=== PATIENT | female | born 1995 | race Caucasian/White ===

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

== ENCOUNTER 2018-05-21 16:01 | Emergency (ER) | payer OTHER ==
--- NOTE | 2018-05-21 16:15 | PDOC ---
Rapid Medical Evaluation Chief Complaint: Vaginal Sxs Time Seen by Provider: 05/21/18 16:12 Medical Evaluation: Allergies Allergy/AdvReac Type Severity Reaction Status Date / Time No Known Allergies Allergy Verified 12/22/16 12:56 05/21/18 16:14 I have performed a brief in-person evaluation of this patient. The patient presents with a chief complaint of: abd cramping / burning with void / vag draiange Pertinent physical exam findings: abd soft/ no guarding I have ordered the following: UCG/UA/ Ucx/ GC/Chlamy The patient will proceed to the ED for further evaluation. Discharge Disposition - Referrals Referrals: Yoel Garza MD [Primary Care Provider] - - Patient Instructions - Post Discharge Activity
[2018-05-21 16:19] VITALS: BP 126/57; PULSE 61; TEMP 98.8; BMI 25.2
--- NOTE | 2018-05-21 16:35 | PDOC ---
History of Present Illness - General Chief Complaint: Vaginal Sxs Stated Complaint: VAGINAL PROBLEM/STD TEST Time Seen by Provider: 05/21/18 16:12 History Source: Patient Exam Limitations: No Limitations - History of Present Illness Travel History: No Initial Comments: 05/21/18 16:34 c/o 2 months on and off vaginal discharge and burning with urination and intercourse. LMP 2 weeks ago using control pill. Past History - Past Medical History Allergies/Adverse Reactions: Allergies Allergy/AdvReac Type Severity Reaction Status Date / Time No Known Allergies Allergy Verified 05/21/18 16:15 Home Medications: Ambulatory Orders No Home Medications 0 dose .ROUTE UTDICT 02/23/13 COPD: No - Reproductive History (#): 1 Para: 0 Therapeutic (s) & number: No Spontaneous : 0 - Immunization History Immunization Up to Date: No - Suicide/Smoking/Psychosocial Hx Smoking Status: No Smoking History: Never smoked Have you smoked in the past 12 months: No Number of Cigarettes Smoked Daily: 0 Information on smoking cessation initiated: No Hx Alcohol Use: No Drug/Substance Use Hx: No Substance Use Type: None *Physical Exam - Vital Signs Last Vital Signs Temp Pulse Resp BP Pulse Ox 98.8 F 61 18 126/57 L 100 05/21/18 16:13 05/21/18 16:13 05/21/18 16:13 05/21/18 16:13 05/21/18 16:13 - Physical Exam General Appearance: Yes: Nourished, Appropriately Dressed HEENT: positive: EOMI, OMARI, Normal ENT Inspection, TMs Normal, Pharynx Normal Respiratory/Chest: positive: Lungs Clear, Normal Breath Sounds Cardiovascular: positive: Regular Rhythm, Regular Rate Female Pelvic Exam: positive: discharge (thick yellow/white ). negative: normal adnexa, lesions, adnexal tenderness Gastrointestinal/Abdominal: positive: Normal Bowel Sounds. 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 NML intact, Fully Oriented, Alert, Normal Mood/ Affect, Normal Response, Motor Strength 5/5 Medical Decision Making - Medical Decision Making 05/21/18 16:55 cc: vaginal discharge for 2 months comes and goes painful intercourse will treat for STD exposure pt believes she may have been exposed 2 months ago will draw HIV, RPR *DC/Admit/Observation/Transfer Diagnosis at time of Disposition: Vaginal discharge - Discharge Dispostion Disposition: HOME Condition at time of disposition: Good - Referrals Referrals: Yoel Garza MD [Primary Care Provider] - - Patient Instructions Printed Discharge Instructions: DI for Vaginal Discharge Additional Instructions: 05/21/18 1. As discussed, a screening test for the HIV virus was performed today. Your HIV test is Negative (normal). 2. As discussed, if you engaged in high risk-behavior in the three (3) months prior to this test, you could still potentially be at risk and you will need to be re-tested. 3. As discussed, avoid any high risk behavior (such as unprotected sex or needle-sharing) in the future to minimize the chances of riky HIV. 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
[2018-05-21 16:37] LABS: URINE APPEARANCE CLEAR; URINE BILIRUBIN NEGATIVE (<2.0 mg/dL); URINE COLOR YELLOW; URINE GLUCOSE (UA) NEGATIVE (NEGATIVE); URINE KETONE NEGATIVE (NEGATIVE); URINE LEUK ESTERASE NEGATIVE (NEGATIVE); URINE NITRITE NEGATIVE (NEGATIVE); URINE PROTEIN NEGATIVE (NEGATIVE); URINE UROBILINOGEN NEGATIVE mg/dL (0.2-1.0)
[2018-05-21] MEDS ORDERED: AZITHROMYCIN 500 MG TABLET PO ONE (16:38)
[2018-05-21 16:39] LABS: HCG,QUALITATIVE URINE Negative
[2018-05-21] MEDS ORDERED: AZITHROMYCIN 250 MG TABLET ONE (16:50)
== END 2018-05-21 18:26 | disposition home or self-care (01) ==
LOC: JERFT 16:01
DX: Z20.2 Contact with and (suspected) exposure to infections with a predominantly sexual mode of transmission (principal)
CPT/HCPCS: 36415; 81003; 84703; 86593; 87070; 87086; 87205; 87389; 87491; 87591; 99281-25

== ENCOUNTER 2018-07-02 10:16 | Emergency (ER) | payer OTHER ==
[2018-07-02 10:28] VITALS: BP 117/62; PULSE 60; TEMP 98.7; BMI 25.2
--- NOTE | 2018-07-02 11:23 | PDOC ---
History of Present Illness - General Chief Complaint: Nausea/Vomiting Stated Complaint: NAUSEA/VOMITING Time Seen by Provider: 07/02/18 11:14 History Source: Patient Exam Limitations: No Limitations - History of Present Illness Initial Comments: Pt is a 23-year-old female who states over the past 2 days sh has had 3-4 episodes of nausea and vomiting. Patient's LMP was earlier this month. She denies abdominal pain, denies fever, denies diarrhea. Denies sick contacts or recent international travel. Patient denies dysuria. Pain is 0-10. Denies any aggravating or relieving factors. 07/02/18 11:19 Past History - Travel Traveled outside of the country in the last 30 days: No Close contact w/someone who was outside of country & ill: No - Past Medical History Allergies/Adverse Reactions: Allergies Allergy/AdvReac Type Severity Reaction Status Date / Time No Known Allergies Allergy Verified 05/21/18 16:15 Home Medications: Ambulatory Orders No Home Medications 0 dose .ROUTE UTDICT 02/23/13 COPD: No - Reproductive History (#): 1 Para: 0 Therapeutic (s) & number: No Spontaneous : 0 - Immunization History Immunization Up to Date: No - Suicide/Smoking/Psychosocial Hx Smoking Status: No Smoking History: Current some day smoker Have you smoked in the past 12 months: No Number of Cigarettes Smoked Daily: 0 Information on smoking cessation initiated: No Hx Alcohol Use: No Drug/Substance Use Hx: No Substance Use Type: None Review of Systems - Review of Systems Able to Perform ROS?: Yes Constitutional: No: Chills, Fever ABD/GI: No: Abdominal Distended, Constipated, Diarrhea, Indigestion All Other Systems: Reviewed and Negative *Physical Exam - Vital Signs Last Vital Signs Temp Pulse Resp BP Pulse Ox 98.7 F 60 16 117/62 98 07/02/18 10:24 07/02/18 10:24 07/02/18 10:24 07/02/18 10:24 07/02/18 10:24 - Physical Exam Comments: Constitutional: VS stated, pt appears in no apparent distress; sitting in chair. Skin: Warm and dry. Intact, no lesions or excoriations. Head: Normocephalic; atraumatic Eyes: conjunctiva pink without injection or discharge. Throat: Oropharynx with pink and moist mucosa. Lungs: Bilateral breath sounds clear upon auscultation. No adventitious breath sounds. Heart: Regular rate and rhythm, S1/S2 auscultated. No murmurs, rubs, or gallops. No visible pulsations, heaves, or lifts on precordium. Abdomen: Soft and non-tender. Bowel sounds present in all 4 quadrants, no hepatosplenomegaly, No bruits auscultated. No guarding or rebound. No masses or visible pulsations present. No suprapubic tenderness. No CVAT. No bruits. Musculoskeletal: Moves all extremities without difficulty. Neurologic: Awake, alert. Conversation fluent. Psych: Approrpiate affect 07/02/18 11:22 Moderate Sedation - Procedure Monitoring Vital Signs: Procedure Monitoring Vital Signs Temperature 98.7 F 07/02/18 10:24 Pulse Rate 60 07/02/18 10:24 Respiratory Rate 16 07/02/18 10:24 Blood Pressure 117/62 07/02/18 10:24 O2 Sat by Pulse Oximetry (%) 98 07/02/18 10:24 Medical Decision Making - Medical Decision Making Pt's urine was negative. She decided to forego Zofran for nausea. Patient's physical exam and vital signs are within normal limits. I do not feel the patient needs further evaluation. I feel this more viral in nature. 07/02/18 11:22 07/02/18 12:04 *DC/Admit/Observation/Transfer Diagnosis at time of Disposition: Nausea & vomiting Qualifiers: Vomiting type: unspecified Vomiting Intractability: non-intractable Qualified Code(s): R11.2 - Nausea with vomiting, unspecified - Discharge Dispostion Disposition: HOME Condition at time of disposition: Stable - Referrals Referrals: Yoel Garza MD [Primary Care Provider] - - Patient Instructions Printed Discharge Instructions: DI for Nausea -- Adult Additional Instructions: Force fluids. Follow up with your PCP. Return for fever greater than 100 or worsening symptoms. - Post Discharge Activity Forms/Work/School Notes: Back to Work
== END 2018-07-02 12:14 | disposition home or self-care (01) ==
LOC: JERFT 10:16
DX: R11.2 Nausea with vomiting, unspecified (principal)
CPT/HCPCS: 84703; 99281-25

== ENCOUNTER 2018-08-29 20:00 | Emergency (ER) | payer OTHER ==
[2018-08-29 20:08] VITALS: BP 109/64; PULSE 90; TEMP 98.2; BMI 25.4
[2018-08-29] MEDS ORDERED: DEXAMETHASONE SOD PHOSPHATE 4 MG/1 ML VIAL IM ONE (21:18)
[2018-08-29] MEDS ORDERED: NAPROXEN 500 MG TABLET (FP) PO ONE (21:19)
--- NOTE | 2018-08-29 21:23 | PDOC ---
History of Present Illness - General Chief Complaint: Sore Throat Stated Complaint: SORE THROAT/CHEST PAIN Time Seen by Provider: 08/29/18 21:12 - History of Present Illness Initial Comments: 08/29/18 21:22 Chief complaint sore throat History of present illness: 23 years old no significant past medical history except for recurrent strep presents to the emergency department 2 day history of sore throat. Subjective fevers at home no runny nose no cough pain with swallowing but no difficulty breathing no severe neck pain or stiffness no severe headache no rash Symptoms are moderate persistent concent no exacerbating or alleviating factors. Past History - Past Medical History Allergies/Adverse Reactions: Allergies Allergy/AdvReac Type Severity Reaction Status Date / Time No Known Allergies Allergy Verified 08/29/18 20:08 Home Medications: Ambulatory Orders No Home Medications 0 dose .ROUTE UTDICT 02/23/13 Amox-Tr/K Cl [Augmentin - 875Mg Tablet] 1 tab PO BID #14 tablet 08/29/18 COPD: No - Reproductive History (#): 1 Para: 0 Therapeutic (s) & number: No Spontaneous : 0 - Immunization History Immunization Up to Date: No - Suicide/Smoking/Psychosocial Hx Smoking Status: No Smoking History: Never smoked Have you smoked in the past 12 months: No Number of Cigarettes Smoked Daily: 0 Information on smoking cessation initiated: No Hx Alcohol Use: No Drug/Substance Use Hx: No Substance Use Type: None Review of Systems - Review of Systems Comments:: 08/29/18 21:22 ROS: A complete review of 10 out of 10 review of systems is taken and is negative apart from what is previously mentioned below and in the HPI. *Physical Exam - Vital Signs Last Vital Signs Temp Pulse Resp BP Pulse Ox 98.2 F 90 16 109/64 100 08/29/18 20:07 08/29/18 20:07 08/29/18 20:07 08/29/18 20:07 08/29/18 20:07 - Physical Exam Comments: 08/29/18 21:23 Vitals: Triage Vital signs reviewed General Appearance: no acute distress, well nourished well developed, Head: Atraumatic, Nose: Nares patent bilaterally;no nasal congestion Throat: Bilateral enlarged tonsils with erythema Neck: Supple;No Nucal rigidity Chest Wall: Nontender Cardiac: Regular rate and rhythym, no murmurs, no rubs, no gallops, Lungs: Clear to auscultation bilateral, good air movement bilaterally, Extremities: Full range of motion to all extremities, no cyanosis, clubbing, or edema Skin: Warm and dry, no rashes or lesions, no rash, no petechiae Psych: normal mood, normal affect Moderate Sedation - Procedure Monitoring Vital Signs: Procedure Monitoring Vital Signs Temperature 98.2 F 08/29/18 20:07 Pulse Rate 90 08/29/18 20:07 Respiratory Rate 16 08/29/18 20:07 Blood Pressure 109/64 08/29/18 20:07 O2 Sat by Pulse Oximetry (%) 100 08/29/18 20:07 Medical Decision Making - Medical Decision Making 08/29/18 21:24 History examination consistent with strep throat given history of recurrent strep we'll treat with Augmentin on further history she was recently diagnosed and treated back in early July she believes was amoxicillin Well-appearing no headache no neck stiffness able to tolerate fluids we'll treat with IM Decadron by mouth naproxen and Augmentin as an outpatient she will return to ED for any severe worsening symptoms or for any concerns. Find his, need for follow-up and strict return instructions discussed with patient. *DC/Admit/Observation/Transfer Diagnosis at time of Disposition: Strep pharyngitis - Discharge Dispostion Disposition: HOME Decision to Admit order: No - Prescriptions Prescriptions: Amox-Tr/K Cl [Augmentin - 875Mg Tablet] 1 tab PO BID #14 tablet - Referrals Referrals: Timo Jorge MD [Staff Physician] - - Patient Instructions Printed Discharge Instructions: Strep Throat Additional Instructions: Take Augmentin as prescribed. Follow-up with Dr. Jorge ENT next week. Return to emergency Department for severe worsening symptoms or for any concerns. Drink plenty of fluids. Take naproxen 2 tabs twice a day for the next 3 days and Tylenol as needed as directed on package. - Post Discharge Activity
[2018-08-29] MEDS ORDERED: DEXAMETHASONE SOD PHOSPHATE 4 MG/1 ML VIAL ONE (21:31)
[2018-08-29] MEDS ORDERED: NAPROXEN 500 MG TABLET (FP) ONE (21:31)
== END 2018-08-29 21:54 | disposition home or self-care (01) ==
LOC: JERFT 20:00
DX: J02.0 Streptococcal pharyngitis (principal); B95.5 Unspecified streptococcus as the cause of diseases classified elsewhere
CPT/HCPCS: 87070; 87077; 99281-25

== ENCOUNTER 2018-08-31 16:15 | Emergency (ER) | payer OTHER ==
[2018-08-31 16:20] VITALS: BP 97/55; PULSE 62; TEMP 98.4; BMI 25.4
--- NOTE | 2018-08-31 16:20 | PDOC ---
Rapid Medical Evaluation Medical Evaluation: Allergies Allergy/AdvReac Type Severity Reaction Status Date / Time No Known Allergies Allergy Verified 08/29/18 20:08 08/31/18 16:18 I performed a brief in-person evaluation of this patient. Chief complaint: Chest pain, here 08/29 for strep, on Augmentin Pertinent physical exam findings: Epigastric tenderness. RRR, S1/S2. Lungs CTAB. I have ordered the following: EKG Patient will proceed to the ED for further evaluation. Discharge Disposition - Diagnosis Chest pain - Referrals - Patient Instructions - Post Discharge Activity
[2018-08-31] MEDS ORDERED: MAG HYDROX/AL HYDROX/SIMETH 30 ML UNIT-DOSE CUP PO ONE (17:02)
[2018-08-31] MEDS ORDERED: MAG HYDROX/AL HYDROX/SIMETH 30 ML UNIT-DOSE CUP ONE (17:06)
--- NOTE | 2018-08-31 17:06 | PDOC ---
History of Present Illness - General Chief Complaint: Chest Pain Stated Complaint: CHEST PAIN Time Seen by Provider: 08/31/18 16:43 - History of Present Illness Initial Comments: 08/31/18 17:06 23-year-old female into a 2 day course of amoxicillin for strep throat complains of chest pain. She describes her pain as a burning pain after eating. No radiation of symptoms. She points to the epigastric area of the area of her discomfort Past History - Past Medical History Allergies/Adverse Reactions: Allergies Allergy/AdvReac Type Severity Reaction Status Date / Time No Known Allergies Allergy Verified 08/31/18 16:18 Home Medications: Ambulatory Orders Amoxicillin/Potassium Clav [Augmentin 875-125 Tablet] 1 each PO BID 08/31/18 Famotidine [Pepcid] 20 mg PO BID #60 tablet 08/31/18 COPD: No - Reproductive History (#): 1 Para: 0 Therapeutic (s) & number: No Spontaneous : 0 - Immunization History Immunization Up to Date: No - Suicide/Smoking/Psychosocial Hx Smoking Status: No Smoking History: Never smoked Have you smoked in the past 12 months: No Number of Cigarettes Smoked Daily: 0 Hx Alcohol Use: No Drug/Substance Use Hx: No Substance Use Type: None Review of Systems - Review of Systems ABD/GI: Yes: See HPI *Physical Exam - Vital Signs Last Vital Signs Temp Pulse Resp BP Pulse Ox 98.4 F 62 18 97/55 L 99 08/31/18 16:18 08/31/18 16:18 08/31/18 16:18 08/31/18 16:18 08/31/18 16:18 - Physical Exam Comments: 08/31/18 17:06 HEAD: NC/AT EYES: Conjuntiva clear Ears: Canals and TM's normal NOSE: No d/c THROAT: Moist mucous membrances, oral pharanx clear, uvula midline NECK: Supple without adenopathy CARDIAC: S1 S2 LUNGS: CTA Full and Equal breath sounds ABDOMEN: Soft NT ND MS: Full ROM in all joints without edema NEUROLOGIC: No gross sensory or motor deficits, NVID SKIN: Normal color and temperature no lesions or rashes Moderate Sedation - Procedure Monitoring Vital Signs: Procedure Monitoring Vital Signs Temperature 98.4 F 08/31/18 16:18 Pulse Rate 62 08/31/18 16:18 Respiratory Rate 18 08/31/18 16:18 Blood Pressure 97/55 L 08/31/18 16:18 O2 Sat by Pulse Oximetry (%) 99 08/31/18 16:18 Medical Decision Making - Medical Decision Making 08/31/18 17:43 Improved after [place] 08/31/18 17:46 ekg normal *DC/Admit/Observation/Transfer Diagnosis at time of Disposition: Chest pain, GERD (gastroesophageal reflux disease) - Discharge Dispostion Disposition: HOME Condition at time of disposition: Improved Decision to Admit order: No - Referrals Referrals: Yoel Garza MD [Primary Care Provider] - Casa Mckeon DO [Staff Physician] - - Patient Instructions Printed Discharge Instructions: Heartburn -- Overview, DI for Gastroesophageal Reflux Disease (GERD), GERD Diet Additional Instructions: Please take the Pepcid as directed. Discontinue all anti-inflammatory such as Advil Motrin Naprosyn Aleve ibuprofen. You may only take Tylenol at this point fear pain. Follow-up with gastroenterology in one to 2 days for further evaluation and treatment options and return to the emergency room should symptoms worsen or go unresolved. - Post Discharge Activity
--- NOTE | 2018-09-01 12:07 | EKG ---
Test Reason : Blood Pressure : / mmHG Vent. Rate : 054 BPM Atrial Rate : 054 BPM P-R Int : 124 ms QRS Dur : 074 ms QT Int : 404 ms P-R-T Axes : 025 064 034 degrees QTc Int : 383 ms SINUS BRADYCARDIA WITH SINUS ARRHYTHMIA OTHERWISE NORMAL ECG WHEN COMPARED WITH ECG OF 22-DEC-2016 14:26, NO SIGNIFICANT CHANGE WAS FOUND Confirmed by MD SPENSER, XIAO ([id number]) on 09/01/2018 12:07:44 PM Referred By: Confirmed By:IXAO DUEÑAS MD
== END 2018-08-31 17:49 | disposition home or self-care (01) ==
LOC: JERFT 16:15
DX: K21.9 Gastro-esophageal reflux disease without esophagitis (principal); R07.9 Chest pain, unspecified
CPT/HCPCS: 84703; 93005; 93010; 99281-25

== ENCOUNTER 2018-09-09 17:28 | Emergency (ER) | payer OTHER ==
[2018-09-09 17:43] VITALS: BP 103/60; PULSE 82; TEMP 99; BMI 25.4
--- NOTE | 2018-09-09 17:46 | PDOC ---
Rapid Medical Evaluation Chief Complaint: Sore Throat Time Seen by Provider: 09/09/18 17:43 Medical Evaluation: Allergies Allergy/AdvReac Type Severity Reaction Status Date / Time No Known Allergies Allergy Verified 08/31/18 16:18 Vital Signs Temp Pulse Resp BP Pulse Ox 99.0 F 82 18 103/60 99 09/09/18 17:41 09/09/18 17:41 09/09/18 17:41 09/09/18 17:41 09/09/18 17:41 09/09/18 17:43 I have performed a brief in-person evaluation of this patient. The patient presents with a chief complaint of: body aches w/ malaise and sore throat since last night. Of note, had grp C strep on throat cx 2 weeks ago Pertinent physical exam findings:Stable, gianna uncomfortable I have ordered the following:strep/flu The patient will proceed to the ED for further evaluation. Discharge Disposition - Diagnosis Malaise - Referrals - Patient Instructions - Post Discharge Activity
--- NOTE | 2018-09-09 18:22 | PDOC ---
History of Present Illness - General Chief Complaint: Sore Throat Stated Complaint: CHEST PAIN Time Seen by Provider: 09/09/18 17:43 - History of Present Illness Initial Comments: 09/09/18 18:15 23-year-old female presents for evaluation of sore throat fever and body aches times one day Past History - Past Medical History Allergies/Adverse Reactions: Allergies Allergy/AdvReac Type Severity Reaction Status Date / Time No Known Allergies Allergy Verified 08/31/18 16:18 Home Medications: Ambulatory Orders NK [No Known Home Medication] 09/09/18 COPD: No - Reproductive History (#): 1 Para: 0 Therapeutic (s) & number: No Spontaneous : 0 - Immunization History Immunization Up to Date: No - Suicide/Smoking/Psychosocial Hx Smoking Status: No Smoking History: Never smoked Have you smoked in the past 12 months: No Number of Cigarettes Smoked Daily: 0 Hx Alcohol Use: No Drug/Substance Use Hx: No Substance Use Type: None Review of Systems - Review of Systems Constitutional: Yes: Fever HEENTM: Yes: Throat Pain, Throat Swelling, Difficulty Swallowing *Physical Exam - Vital Signs Last Vital Signs Temp Pulse Resp BP Pulse Ox 99.0 F 82 18 103/60 99 09/09/18 17:41 09/09/18 17:41 09/09/18 17:41 09/09/18 17:41 09/09/18 17:41 - Physical Exam Comments: 09/09/18 18:22 HEAD: NC/AT EYES: Conjuntiva clear Ears: Canals and TM's normal NOSE: No d/c THROAT: Moist mucous membrances, oral pharanx erythemic with exudate, uvula midline NECK: Supple without adenopathy CARDIAC: S1 S2 LUNGS: CTA Full and Equal breath sounds ABDOMEN: Soft NT ND MS: Full ROM in all joints without edema NEUROLOGIC: No gross sensory or motor deficits, NVID SKIN: Normal color and temperature no lesions or rashes Moderate Sedation - Procedure Monitoring Vital Signs: Procedure Monitoring Vital Signs Temperature 99.0 F 09/09/18 17:41 Pulse Rate 82 09/09/18 17:41 Respiratory Rate 18 09/09/18 17:41 Blood Pressure 103/60 09/09/18 17:41 O2 Sat by Pulse Oximetry (%) 99 09/09/18 17:41 Medical Decision Making - Medical Decision Making 09/09/18 18:44 Flu and strep swabs are negative. Of note patient just finished a course of amoxicillin last week for strep throat. This is most likely mono. I will treat her with Decadron and have her follow-up with her PCP throat culture was sent *DC/Admit/Observation/Transfer Diagnosis at time of Disposition: Malaise, Viral pharyngitis - Discharge Dispostion Disposition: HOME Condition at time of disposition: Stable Decision to Admit order: No - Referrals Referrals: Yoel Garza MD [Primary Care Provider] - - Patient Instructions Printed Discharge Instructions: DI for Viral Pharyngitis, Viral Pharyngitis Additional Instructions: Warm salt water gargles 6-7 times a day as well as Tylenol will help with your pain. He will given a dose of a long-acting steroid in the emergency room which will also help with your pain. Your flu and strep swabs were negative. Mononucleosis caused by Ji-Nguyen virus can mimic the same symptoms. A culture was sent should you have strep throat require antibiotics we will call you. Hanh follow-up with your primary care physician in one to 2 days for further evaluation and treatment options. Return to the emergency room for worsening symptoms. - Post Discharge Activity
[2018-09-09] MEDS ORDERED: DEXAMETHASONE LIQUID 0.5 MG/5 ML 240 ML BULK BOTTLE PO ONE (18:44)
[2018-09-09] MEDS ORDERED: DEXAMETHASONE SOD PHOSPHATE 10 MG/1 ML VIAL ONE (18:45)
--- NOTE | 2018-09-11 10:33 | EKG ---
Test Reason : Blood Pressure : / mmHG Vent. Rate : 075 BPM Atrial Rate : 075 BPM P-R Int : 120 ms QRS Dur : 086 ms QT Int : 358 ms P-R-T Axes : 025 074 043 degrees QTc Int : 399 ms SINUS RHYTHM WITH MARKED SINUS ARRHYTHMIA T WAVE ABNORMALITY, CONSIDER ANTERIOR ISCHEMIA ABNORMAL ECG WHEN COMPARED WITH ECG OF 31-AUG-2018 16:24, NO SIGNIFICANT CHANGE WAS FOUND Confirmed by RUBEN WHALEY MD ([id number]) on 09/11/2018 10:32:58 AM Referred By: Confirmed By:RUBEN WHALEY MD
== END 2018-09-09 18:51 | disposition home or self-care (01) ==
LOC: JERFT 17:28
DX: J02.8 Acute pharyngitis due to other specified organisms (principal); B97.89 Other viral agents as the cause of diseases classified elsewhere; R53.81 Other malaise
CPT/HCPCS: 87070; 87804; 87880; 93005; 93010; 99281-25

== ENCOUNTER 2019-02-13 10:17 | Emergency (ER) | payer OTHER ==
[2019-02-13 10:21] VITALS: BP 105/51; PULSE 71; TEMP 98.2; BMI 25.2
--- NOTE | 2019-02-13 10:56 | PDOC ---
*Physical Exam - Vital Signs Last Vital Signs Temp Pulse Resp BP Pulse Ox 98.2 F 71 18 105/51 L 97 02/13/19 10:19 02/13/19 10:19 02/13/19 10:19 02/13/19 10:19 02/13/19 10:19 ED Treatment Course - LABORATORY CBC & Chemistry Diagram: 02/13/19 11:37 02/13/19 11:37 Medical Decision Making - Medical Decision Making 02/13/19 10:55 The patient was seen and evaluated in conjunction with MAUREEN Patrick under my direct supervision, ancillary studies were reviewed. I independently interviewed and evaluated the patient and I agree with the plan as outlined by MAUREEN Patrick. Pt was feeling better at time of discharge , example and symptoms consistent with gastroenteritis. 02/13/19 13:38 *DC/Admit/Observation/Transfer Diagnosis at time of Disposition: Diarrhea, Gastrointestinal discomfort - Discharge Dispostion Disposition: HOME Condition at time of disposition: Stable - Prescriptions Prescriptions: Famotidine [Pepcid] 20 mg PO BID 3 Days #10 tablet - Referrals Referrals: Casa Mckeon DO [Staff Physician] - Piyush Milton MD [Staff Physician] - ON STAFF,NOT [Primary Care Provider] - - Patient Instructions Printed Discharge Instructions: Gastroenteritis Diet Additional Instructions: Return for worsening/concerning symptoms. Do not eat anything spicy/greasy, please have a bland diet for the next couple of days. Call the lead painter to schedule a follow up appointment. - Post Discharge Activity Forms/Work/School Notes: Back to Work
[2019-02-13] MEDS ORDERED: FAMOTIDINE 20 MG/50 ML IVPB 20 MG/50 ML MG IVPB ONE ×2 (11:14→11:35)
[2019-02-13] MEDS ORDERED: ONDANSETRON 4 MG/2 ML VIAL IVPUSH ONE (11:14)
[2019-02-13] MEDS ORDERED: SODIUM CHLORIDE 1,000 ML IV STA (11:14)
--- NOTE | 2019-02-13 11:20 | PDOC ---
History of Present Illness - General Chief Complaint: Diarrhea Stated Complaint: NAUSEA/DIARRHEA Time Seen by Provider: 02/13/19 10:35 History Source: Patient Exam Limitations: No Limitations - History of Present Illness Initial Comments: 02/13/19 11:15 23 yo F [id number] w/ a h/o lactose intolerance, comes in c/o 5 days of "an upset stomach" with epigastric discomfort, nausea, and multiple episodes of NB diarrhea (7 episodes a day). Everything she eats, comes out as per patient. NO fever/chills, no burning/pain on urination, no frequency/urgency on urination, no abnormal vaginal discharge, no h/o STDs, (+)sexually active with one partner. LMP Beg january, had an IUD placed in a month ago. Has appt with OB on Friday. No recent travel, no recent antibiotic use, no known sick contacts, no prior h/ o similar symptoms, no rash. 02/13/19 11:17 Past History - Past Medical History Allergies/Adverse Reactions: Allergies Allergy/AdvReac Type Severity Reaction Status Date / Time No Known Allergies Allergy Verified 02/13/19 10:21 Home Medications: Ambulatory Orders Famotidine [Pepcid] 20 mg PO BID 3 Days #10 tablet 02/13/19 COPD: No - Reproductive History (#): 1 Para: 0 Therapeutic (s) & number: No Spontaneous : 0 - Immunization History Immunization Up to Date: No - Suicide/Smoking/Psychosocial Hx Smoking Status: No Smoking History: Never smoked Have you smoked in the past 12 months: No Number of Cigarettes Smoked Daily: 0 Hx Alcohol Use: No Drug/Substance Use Hx: No Substance Use Type: None Review of Systems - Review of Systems Able to Perform ROS?: Yes Constitutional: No: Chills, Fever, Malaise, Night Sweats HEENTM: No: Eye Pain, Recent change in vision, Throat Pain Respiratory: No: Cough, Shortness of Breath Cardiac (ROS): No: Chest Pain, Palpitations, Chest Tightness ABD/GI: Yes: Diarrhea, Abdominal cramping. No: Nausea, Vomiting : No: Dysuria, Hematuria Musculoskeletal: No: Back Pain Integumentary: No: Rash Neurological: No: Headache, Numbness, Dizziness Psychiatric: Yes: Change in Appetite Endocrine: No: Unexplained Weight Loss *Physical Exam - Vital Signs Last Vital Signs Temp Pulse Resp BP Pulse Ox 98.2 F 71 18 105/51 L 97 02/13/19 10:19 02/13/19 10:19 02/13/19 10:19 02/13/19 10:19 02/13/19 10:19 - Physical Exam General Appearance: Yes: Nourished. No: Apparent Distress HEENT: positive: OMARI, Normal ENT Inspection, Normal Voice. negative: Pale Conjunctivae, Scleral Icterus (R), Scleral Icterus (L) Neck: positive: Supple. negative: Decreased range of motion, Tender midline Respiratory/Chest: positive: Lungs Clear, Normal Breath Sounds. negative: Respiratory Distress, Accessory Muscle Use Cardiovascular: positive: Regular Rhythm, Regular Rate Female Pelvic Exam: positive: normal external exam, cervical os closed, discharge (mild brownish discharge. IUD thread seen and felt. ). negative: CMT , adnexal tenderness Gastrointestinal/Abdominal: positive: Normal Bowel Sounds, Tender (epigastric, suprapubic and mild RLQ tenderness, (-)rebound, (-)Rosving/psoas sign), Soft Musculoskeletal: positive: Normal Inspection. negative: CVA Tenderness, Decreased Range of Motion Extremity: positive: Normal Capillary Refill, Normal Inspection, Normal Range of Motion. negative: Tender, Pedal Edema Integumentary: positive: Normal Color, Dry. negative: Jaundice, Rash Neurologic: positive: Fully Oriented, Alert, Normal Mood/Affect ED Treatment Course - LABORATORY CBC & Chemistry Diagram: 02/13/19 11:37 02/13/19 11:37 Medical Decision Making - Medical Decision Making 02/13/19 11:45 23 yo F w/ abdominal discomfort, diarrhea. Pelvic exam done, no adnexal tenderness, no CMT. Will line and lab, check lytes, UA, Ucx and reassess. Zofran and Pepcid ordered. 02/13/19 13:52 Pt feeling a lot better, labs reviewed. Pt ate crackers, drank water, tolerated PO, she is non toxic appearing in NAD. GC/Ct sent to lab. Pt will follow up with her OB. Will refer to GI also PMD follow up Return for worsening/concerning symptoms Pt verbalizes understanding and agrees with plan 02/13/19 15:13 *DC/Admit/Observation/Transfer Diagnosis at time of Disposition: Gastrointestinal discomfort Diarrhea Qualifiers: Diarrhea type: unspecified type Qualified Code(s): R19.7 - Diarrhea, unspecified - Discharge Dispostion Disposition: HOME Condition at time of disposition: Stable - Prescriptions Prescriptions: Famotidine [Pepcid] 20 mg PO BID 3 Days #10 tablet - Referrals Referrals: ON STAFF,NOT [Primary Care Provider] - Casa Mckeon DO [Staff Physician] - Piyush Milton MD [Staff Physician] - - Patient Instructions Printed Discharge Instructions: Gastroenteritis Diet Additional Instructions: Return for worsening/concerning symptoms. Do not eat anything spicy/greasy, please have a bland diet for the next couple of days. Call the dress draper to schedule a follow up appointment. - Post Discharge Activity Forms/Work/School Notes: Back to Work
[2019-02-13] MEDS ORDERED: ONDANSETRON 4 MG/2 ML VIAL ONE (11:35)
[2019-02-13 11:54] LABS: BASO % 0.9 % (0-2.0); HEMOGLOBIN 13.4 GM/dL (10.7-15.3); LYMPH % 28.5 % (8-40); MCH 31.6 pg (25.7-33.7); MCHC 33.6 g/dl (32.0-36.0); MEAN CELL VOLUME 94.2 fl (80-96); MEAN PLT VOLUME 9.4 fl (7.5-11.1); MONO % 8.2 % (3.8-10.2); NEUT % 60.4 % (42.8-82.8); PLATELET COUNT 239 K/MM3 (134-434); RBC 4.25 M/mm3 (3.60-5.2); RDW 13.2 % (11.6-15.6)
[2019-02-13 12:21] LABS: ALBUMIN 3.8 g/dl (3.4-5.0); BILIRUBIN,TOTAL 0.4 mg/dL (0.2-1); BLOOD UREA NITROGEN 13.5 mg/dL (7-18); CALCIUM 9.3 mg/dL (8.5-10.1); CREATININE 0.8 mg/dL (0.55-1.3); MAGNESIUM 2.2 mg/dL (1.8-2.4); PHOSPHOROUS 3.6 mg/dL (2.5-4.9); POTASSIUM 4.2 mmol/L (3.5-5.1)
[2019-02-13 13:09] LABS: PH,URINE 5.5 (5.0-8.0); URINE APPEARANCE CLEAR; URINE BILIRUBIN NEGATIVE (NEGATIVE); URINE COLOR YELLOW; URINE GLUCOSE (UA) NEGATIVE (NEGATIVE); URINE KETONE NEGATIVE (NEGATIVE); URINE LEUK ESTERASE NEGATIVE (NEGATIVE); URINE NITRITE NEGATIVE (NEGATIVE); URINE PROTEIN NEGATIVE (NEGATIVE); URINE UROBILINOGEN 0.2 mg/dL (0.2-1.0)
== END 2019-02-13 14:22 | disposition home or self-care (01) ==
LOC: JER 10:17
PROC: 3E033GC Introduction of Other Therapeutic Substance into Peripheral Vein, Percutaneous Approach (ICD-10-PCS; principal; 2019-02-13)
PROC: 3E033GC Introduction of Other Therapeutic Substance into Peripheral Vein, Percutaneous Approach (ICD-10-PCS; 2019-02-13)
DX: K30 Functional dyspepsia (principal)
CPT/HCPCS: 36415; 80053; 81003; 83690; 83735; 84100; 84702; 85025; 87086; 87491; 87591; 96365; 96375; 99282-25; J7030

== ENCOUNTER 2019-08-23 01:03 | Emergency (ER) | payer OTHER ==
[2019-08-23 01:10] VITALS: BMI 25.6
[2019-08-23] MEDS ORDERED: SODIUM CHLORIDE 0.9% 500 ML INFUS.BAG IV ONE (02:36)
[2019-08-23] MEDS ORDERED: ACETAMINOPHEN 1000 MG/100 ML VIAL (NON FORMULARY) IVPB ONE (02:37)
--- NOTE | 2019-08-23 02:37 | PDOC ---
History of Present Illness - General Chief Complaint: Cold Symptoms Stated Complaint: FLU LIKE SYMPTOMS History Source: Patient - History of Present Illness Is this a multiple visit Asthma Patient?: No Past History - Past Medical History Allergies/Adverse Reactions: Allergies Allergy/AdvReac Type Severity Reaction Status Date / Time No Known Allergies Allergy Verified 08/23/19 01:10 Home Medications: Ambulatory Orders Famotidine [Pepcid] 20 mg PO BID 3 Days #10 tablet 02/13/19 Oseltamivir Phosphate [Tamiflu -] 75 mg PO BID #9 capsule 08/23/19 COPD: No - Reproductive History (#): 1 Para: 0 Therapeutic (s) & number: No Spontaneous : 0 - Immunization History Immunization Up to Date: No - Psycho Social/Smoking Cessation Hx Smoking Status: No Smoking History: Never smoked Have you smoked in the past 12 months: No Number of Cigarettes Smoked Daily: 0 If you are a former smoker, when did you quit?: 3 mths ago Hx Alcohol Use: Yes Drug/Substance Use Hx: No Substance Use Type: None Review of Systems - Review of Systems Constitutional: Yes: Chills, Fever, Loss of Appetite, Weakness. No: Symptoms Reported, See HPI, Diaphoresis, Malaise, Night Sweats, Weight Stable, Unintentional Wgt. Loss, Unexplained wgt Loss, Other HEENTM: No: Symptoms Reported, See HPI, Eye Pain, Blurred Vision, Tearing, Recent change in vision, Double Vision, Cataracts, Ear Pain, Ocular Prothesis, Ear Discharge, Nose Pain, Nose Congestion, Tinnitus, Nose Bleeding, Hearing Loss , Throat Pain, Throat Swelling, Mouth Pain, Dental Problems, Difficulty Swallowing, Mouth Swelling, Other Respiratory: Yes: Cough, SOB with Exertion, Wheezing Cardiac (ROS): Yes: Chest Pain, Chest Tightness. No: Symptoms Reported, See HPI , Edema, Irregular Heart Rate, Lightheadedness, Palpitations, Syncope, Other ABD/GI: No: Symptoms Reported, See HPI, Abdominal Distended, Abd. Pain w/ defecation, Blood Streaked Bowels, Constipated, Diarrhea, Difficulty Swallowing , Nausea, Poor Appetite, Poor Fluid Intake, Rectal Bleeding, Vomiting, Indigestion, Abdominal cramping, Tarry Stools, Other : No: Symptoms Reported, See HPI, Burning, Dysuria, Discharge, Frequency, Flank Pain, Hematuria, Incontinence, Pain, Urgency, Testicular Mass, Testicular Swelling, Lesions, Testicular Pain, Other Musculoskeletal: Yes: Muscle Pain, Muscle Weakness. No: Symptoms Reported, See HPI, Back Pain, Gout, Joint Pain, Joint Swelling, Neck Pain, Joint Stiffness, Other Integumentary: No: Symptoms Reported, See HPI, Bruising, Change in Color, Change in Hair/Nails, Dryness, Erythema, Flushing, Lesions, Lumps, Pallor, Pruritus, Rash, Sweating, Other Neurological: No: Symptoms reported, See HPI, Headache, Numbness, Paresthesia, Pre-Existing Deficit, Seizure, Tingling, Tremors, Weakness, Unsteady Gait, Ataxia, Dizziness, Other Psychiatric: Yes: Emotional Problems Endocrine: No: Symptoms Reported, See HPI, Excessive Sweating, Flushing, Intolerance to Cold, Intolerance to Heat, Increased Hunger, Increased Thirst, Increased Urine, Unexplained Weight Gain, Unexplained Weight Loss, Change in Weight, Other *Physical Exam - Vital Signs Last Vital Signs Temp Pulse Resp BP Pulse Ox 102.4 F H 120 H 18 94/52 L 96 08/23/19 01:07 08/23/19 01:07 08/23/19 01:07 08/23/19 01:07 08/23/19 01:07 - Physical Exam General Appearance: Yes: Nourished, Appropriately Dressed, Apparent Distress, Mild Distress. No: Moderate Distress, Severe Distress HEENT: positive: EOMI, OMARI, Normal ENT Inspection, Normal Voice, Symmetrical, TMs Normal, Pharynx Normal Neck: positive: Trachea midline, Supple Respiratory/Chest: positive: Lungs Clear, Normal Breath Sounds Cardiovascular: positive: Regular Rhythm, Regular Rate, S1, S2 Gastrointestinal/Abdominal: positive: Normal Bowel Sounds, Tender, Flat, Soft Musculoskeletal: positive: Normal Inspection. negative: CVA Tenderness Extremity: positive: Normal Capillary Refill, Normal Inspection, Normal Range of Motion, Pelvis Stable Integumentary: positive: Normal Color, Dry, Warm Neurologic: positive: microelectronics engineer II-XII NML intact, Fully Oriented, Alert, Normal Mood/ Affect, Normal Response, Motor Strength /5 ED Treatment Course - LABORATORY CBC & Chemistry Diagram: 08/23/19 02:43 08/23/19 02:43 Medical Decision Making - Medical Decision Making 08/23/19 04:17 Pt's repeat temp is 100F We will treat with motrin 800mg x 1 Discharge - Discharge Information Problems reviewed: Yes Clinical Impression/Diagnosis: Influenza A Condition: Stable Disposition: HOME - Admission No - Additional Discharge Information Prescriptions: Oseltamivir Phosphate [Tamiflu -] 75 mg PO BID #9 capsule - Follow up/Referral Referrals: Yoel Garza MD [Primary Care Provider] - - Patient Discharge Instructions Patient Printed Discharge Instructions: Influenza - Post Discharge Activity Work/Back to School Note: Back to Work
[2019-08-23] MEDS ORDERED: ACETAMINOPHEN INJECTION 100 ML IVPB ONE (02:59)
[2019-08-23 03:16] LABS: BASO % 0.4 % (0-2.0); EOS % 0.2 % (0-4.5); HEMATOCRIT 40.7 % (32.4-45.2); HEMOGLOBIN 13.6 GM/dL (10.7-15.3); LYMPH % 12.8 % (8-40); MCH 31.4 pg (25.7-33.7); MCHC 33.3 g/dl (32.0-36.0); MEAN CELL VOLUME 94.2 fl (80-96); MEAN PLT VOLUME 9.4 fl (7.5-11.1); MONO % 15.5 % (3.8-10.2); NEUT % 71.1 % (42.8-82.8); PLATELET COUNT 175 K/MM3 (134-434); RBC 4.32 M/mm3 (3.60-5.2); RDW 13.3 % (11.6-15.6); WHITE BLOOD COUNT 4.5 K/mm3 (4.0-10.0)
[2019-08-23] MEDS ORDERED: OSELTAMIVIR PHOSPHATE 75 MG CAPSULE PO ONE (03:41)
[2019-08-23 03:49] LABS: ALBUMIN 3.9 g/dl (3.4-5.0); BILIRUBIN,TOTAL 0.4 mg/dL (0.2-1); BLOOD UREA NITROGEN 9.6 mg/dL (7-18); CALCIUM 8.9 mg/dL (8.5-10.1); CREATININE 0.9 mg/dL (0.55-1.3); POTASSIUM 3.9 mmol/L (3.5-5.1); TOT PROT 7.3 g/dl (6.4-8.2)
[2019-08-23] MEDS ORDERED: OSELTAMIVIR PHOSPHATE 75 MG CAPSULE ONE (04:00)
[2019-08-23] MEDS ORDERED: IBUPROFEN 400 MG TABLET (FP) PO ONE (04:16)
[2019-08-23 04:31] VITALS: BP 100/74; PULSE 90; TEMP 100.1
== END 2019-08-23 04:30 | disposition home or self-care (01) ==
LOC: JER 01:03
PROC: 3E033NZ Introduction of Analgesics, Hypnotics, Sedatives into Peripheral Vein, Percutaneous Approach (ICD-10-PCS; principal; 2019-08-23)
DX: J09.X2 Influenza due to identified novel influenza A virus with other respiratory manifestations (principal)
CPT/HCPCS: 36415; 80053; 85025; 87804; 96374; 99284-25; J0131

== ENCOUNTER 2020-03-22 11:18 | Emergency (ER) | payer OTHER ==
[2020-03-22 11:28] VITALS: TEMP 98.6; BMI 26.2
--- NOTE | 2020-03-22 11:28 | PDOC ---
Rapid Medical Evaluation Chief Complaint: Pain Time Seen by Provider: 03/22/20 11:25 Medical Evaluation: Allergies Allergy/AdvReac Type Severity Reaction Status Date / Time No Known Allergies Allergy Verified 08/23/19 01:10 03/22/20 11:26 I performed a brief in-person evaluation of this patient. Pt is a 24 y/o female with lower abdominal pain for 1.5 weeks. Sexually active, unprotected. LMP 03/12/20. No vaginal bleeding. No dysuria/hematuria. Pertinent physical exam findings: + lower abd tender to palp, A&Ox3. I have ordered the following: ua, ucx, urine preg Patient to proceed to ED for further evaluation. Discharge Disposition - Diagnosis Lower abdominal pain - Referrals - Patient Instructions - Post Discharge Activity
--- NOTE | 2020-03-22 12:08 | PDOC ---
History of Present Illness - General Chief Complaint: Pain Stated Complaint: STOMACH PAIN (1 WK) Time Seen by Provider: 03/22/20 11:25 History Source: Patient Exam Limitations: No Limitations Past History - Travel History Traveled outside of the country in the last 30 days: No Close contact w/someone who was outside of country & ill: No - Medical History Allergies/Adverse Reactions: Allergies Allergy/AdvReac Type Severity Reaction Status Date / Time No Known Allergies Allergy Verified 03/22/20 11:29 Home Medications: Ambulatory Orders Famotidine [Pepcid] 20 mg PO BID 3 Days #10 tablet 02/13/19 Oseltamivir Phosphate [Tamiflu -] 75 mg PO BID #9 capsule 08/23/19 Miconazole Nitrate [Monistat Topical Cream -] 1 applic TP BID #1 tube 03/22/20 metroNIDAZOLE [Flagyl -] 500 mg PO DAILY #14 tablet 03/22/20 COPD: No - Reproductive History Is Patient Now?: No (#): 1 Para: 0 Therapeutic (s) & number: No Spontaneous : 0 - Immunization History Immunization Up to Date: No - Psycho-Social/Smoking History Smoking Status: No Smoking History: Never smoked Have you smoked in the past 12 months: No Number of Cigarettes Smoked Daily: 0 If you are a former smoker, when did you quit?: 3 mths ago - Substance Abuse Hx (Audit-C & DAST Scrn) How often the patient has a drink containing alcohol: Monthly or less Number of drinks the patient has on a typical day: 1 or 2 Score: In Men: 4 or > Positive; In Women: 3 or > Positive: 1 Screen Result (Pos requires Nsg. Audit-10AR): Negative In the last yr the pt used illegal drug/Rx for NonMed reason: No Score: Yes response is considered Positive: 0 Screen Result (Positive result requires Nsg. DAST-10): Negative Review of Systems - Review of Systems Able to Perform ROS?: Yes Is the patient limited Pashto proficient: No Constitutional: No: Chills, Fever, Weakness HEENTM: No: Ear Pain, Throat Pain, Throat Swelling Respiratory: No: Cough, Shortness of Breath, Wheezing Cardiac (ROS): No: Chest Pain, Edema, Lightheadedness, Palpitations ABD/GI: Yes: Nausea, Abdominal cramping. No: Diarrhea, Vomiting : No: Burning, Dysuria, Frequency, Flank Pain, Urgency Neurological: No: Headache, Numbness, Weakness All Other Systems: Reviewed and Negative *Physical Exam - Vital Signs Last Vital Signs Temp Pulse Resp BP Pulse Ox 98.6 F 70 16 104/58 L 100 03/22/20 11:25 03/22/20 11:25 03/22/20 11:25 03/22/20 11:25 03/22/20 11:25 - Physical Exam General Appearance: Yes: Nourished, Appropriately Dressed. No: Apparent Distr ess HEENT: positive: EOMI, OMARI, Normal Voice Neck: positive: Trachea midline, Supple. negative: Tender, Rigid Respiratory/Chest: positive: Lungs Clear, Normal Breath Sounds. negative: Chest Tender, Respiratory Distress, Accessory Muscle Use, Rales, Rhonchi, Stridor, Wheezing Cardiovascular: positive: Regular Rhythm, Regular Rate, S1, S2 (present). negative: Murmur Female Pelvic Exam: positive: normal external exam, cervical os closed, normal adnexa, normal size ovaries, discharge (cottage cheese like discharge), other (OS with red ring around the opening). negative: CMT, adnexal tenderness, vaginal bleeding Gastrointestinal/Abdominal: positive: Normal Bowel Sounds, Flat, Soft. negative: Tender Musculoskeletal: negative: CVA Tenderness, CVA Tenderness (R), CVA Tenderness (L) Extremity: positive: Normal Capillary Refill, Normal Inspection, Normal Range of Motion Integumentary: positive: Normal Color, Dry, Warm Neurologic: positive: Fully Oriented, Alert, Normal Mood/Affect, Normal Response ED Treatment Course - LABORATORY CBC & Chemistry Diagram: 03/22/20 13:26 Medical Decision Making - Medical Decision Making 03/22/20 16:51 The patient is a 24 y/o F with no PMH presents to the ER with lower abdominal cr amping for a week and a half. She reports being sexually active with one partner, does not use protection. She states her LMP was on 03/12, however it was shorter than usual. She states she took a pregancy test at home, but it was negative. She is concerned she may be or have an STD. She states she has had a thick white itchy discharge. Admits to nausea. Denies fevers, chills, shortness of breath, difficulty breathing, vomiting, diarrhea, frequency, urgency and hematuria. A/P: Abdominal cramping On exam, pt has no abdominal pain, but discomfort to the lower abdomen over the suprapubic area. Pelvic exam with discharge consistent with a yeast infection, irritation/erythema also noted on the cervix. Cervix is closed. No CMT or adnexal tenderness. No active bleeding Will treat for suspected BV and yeast infection Urine from RME positive for , no UTI noted GC/Chlamydia sent Blood work including beta hcg ordered TVUS shows and early IUP at 5 weeks gestation and pole Beta 4330 DC home with [employer] [facility] follow up. Pt has appointment to see Dr. Cordero next week. All results were reviewed with patient. All questions were answered. Pt feels comfortable with dc planning. Return precautions given. Discharge - Discharge Information Problems reviewed: Yes Clinical Impression/Diagnosis: Qualifiers: Weeks of gestation: less than 8 weeks Qualified Code(s): Z3A.01 - Less than 8 weeks gestation of Condition: Stable Disposition: HOME - Admission No - Additional Discharge Information Prescriptions: metroNIDAZOLE [Flagyl -] 500 mg PO DAILY #14 tablet Miconazole Nitrate [Monistat Topical Cream -] 1 applic TP BID #1 tube - Follow up/Referral Referrals: Yoel Garza MD [Primary Care Provider] - Vishal Baez MD [Staff Physician] - - Patient Discharge Instructions Patient Printed Discharge Instructions: DI for Abdominal Pain -- Early Additional Instructions: You were seen for your abdominal pain today. You are currently 5 weeks based on ultrasound. Your beta hCG was 7000. You also have a yeast infection and BV. Please take the medication as directed. We tested you for STDs today. Please call for your results in 2 to 3 days. Please keep your appointment with [employer] [facility] as scheduled for further evaluation of your Return to the ER for worsening pain, bleeding or if you have any changes in your symptoms - Post Discharge Activity Work/Back to School Note: Back to Work
[2020-03-22 12:56] LABS: HCG,QUALITATIVE URINE Positive
[2020-03-22 13:00] LABS: PH,URINE 5.5 (5.0-8.0); URINE APPEARANCE CLEAR; URINE BILIRUBIN NEGATIVE (NEGATIVE); URINE COLOR YELLOW; URINE GLUCOSE (UA) NEGATIVE (NEGATIVE); URINE KETONE NEGATIVE (NEGATIVE); URINE LEUK ESTERASE NEGATIVE (NEGATIVE); URINE NITRITE NEGATIVE (NEGATIVE); URINE PROTEIN NEGATIVE (NEGATIVE); URINE UROBILINOGEN 0.2 mg/dL (0.2-1.0)
[2020-03-22 14:06] LABS: BASO % 0.2 % (0-2.0); EOS % 1.3 % (0-4.5); HEMATOCRIT 40.6 % (32.4-45.2); HEMOGLOBIN 13.8 GM/dL (10.7-15.3); LYMPH % 20.8 % (8-40); MCH 32.4 pg (25.7-33.7); MEAN CELL VOLUME 95.1 fl (80-96); MEAN PLT VOLUME 9.5 fl (7.5-11.1); MONO % 8.3 % (3.8-10.2); NEUT % 69.4 % (42.8-82.8); PLATELET COUNT 225 K/MM3 (134-434); RBC 4.27 M/mm3 (3.60-5.2); RDW 12.9 % (11.6-15.6); WHITE BLOOD COUNT 7.1 K/mm3 (4.0-10.0)
[2020-03-22 16:18] VITALS: BP 122/68; PULSE 69
== END 2020-03-22 16:19 | disposition home or self-care (01) ==
LOC: JER 11:18
DX: Z34.01 Encounter for supervision of normal first pregnancy, first trimester (principal)
CPT/HCPCS: 36415; 76817-TC; 81003; 84702; 84703; 85025; 87070; 87086; 87205; 87491; 87591; 99284-25

== ENCOUNTER 2020-05-24 20:23 | Emergency (ER) | payer OTHER ==
[2020-05-24] MEDS ORDERED: ACETAMINOPHEN 1000 MG/100 ML VIAL (NON FORMULARY) IVPB ONE (21:14)
[2020-05-24] MEDS ORDERED: ONDANSETRON 4 MG/2 ML VIAL IVPUSH ONE (21:14)
[2020-05-24] MEDS ORDERED: SODIUM CHLORIDE 1,000 ML IV STA (21:14)
[2020-05-24 21:17] VITALS: BMI 26.2
[2020-05-24] MEDS ORDERED: ACETAMINOPHEN INJECTION 100 ML IVPB ONE (22:52)
[2020-05-24 23:58] LABS: BASO % 0.3 % (0-2.0); EOS % 0.2 % (0-4.5); HEMATOCRIT 41.1 % (32.4-45.2); HEMOGLOBIN 13.4 GM/dL (10.7-15.3); LYMPH % 5.3 % (8-40); MCH 30.9 pg (25.7-33.7); MCHC 32.6 g/dl (32.0-36.0); MEAN CELL VOLUME 94.6 fl (80-96); MEAN PLT VOLUME 9.4 fl (7.5-11.1); MONO % 3.9 % (3.8-10.2); NEUT % 90.3 % (42.8-82.8); PLATELET COUNT 196 K/MM3 (134-434); RBC 4.35 M/mm3 (3.60-5.2); RDW 13.1 % (11.6-15.6)
[2020-05-25 00:01] LABS: PH,URINE >= 9.0 (5.0-8.0); URINE APPEARANCE CLEAR; URINE BILIRUBIN NEGATIVE (NEGATIVE); URINE COLOR YELLOW; URINE GLUCOSE (UA) NEGATIVE (NEGATIVE); URINE KETONE NEGATIVE (NEGATIVE); URINE LEUK ESTERASE NEGATIVE (NEGATIVE); URINE NITRITE NEGATIVE (NEGATIVE); URINE PROTEIN NEGATIVE (NEGATIVE)
[2020-05-25 00:04] LABS: HCG,QUALITATIVE URINE Negative
[2020-05-25 00:06] LABS: INR 1.08 (0.83-1.09); PROTHROMBIN TIME (PATIENT) 13.2 SEC (9.7-13.0)
[2020-05-25 00:16] LABS: POTASSIUM 4.1 mmol/L (3.5-5.1)
[2020-05-25 00:18] LABS: CALCIUM 9.7 mg/dL (8.5-10.1)
[2020-05-25 00:19] LABS: ALBUMIN 4.1 g/dl (3.4-5.0); BLOOD UREA NITROGEN 13.8 mg/dL (7-18)
[2020-05-25 00:22] LABS: CREATININE 0.7 mg/dL (0.55-1.3)
[2020-05-25 00:23] LABS: BILIRUBIN,TOTAL 0.7 mg/dL (0.2-1)
[2020-05-25 00:24] LABS: TOT PROT 7.2 g/dl (6.4-8.2)
[2020-05-25 02:27] VITALS: BP 101/55; PULSE 74; TEMP 98.7
== END 2020-05-25 02:10 | disposition home or self-care (01) ==
LOC: JER 20:23
PROC: 3E033NZ Introduction of Analgesics, Hypnotics, Sedatives into Peripheral Vein, Percutaneous Approach (ICD-10-PCS; principal; 2020-05-24)
PROC: 3E033GC Introduction of Other Therapeutic Substance into Peripheral Vein, Percutaneous Approach (ICD-10-PCS; 2020-05-24)
PROC: 3E0337Z Introduction of Electrolytic and Water Balance Substance into Peripheral Vein, Percutaneous Approach (ICD-10-PCS; 2020-05-24)
DX: R10.11 Right upper quadrant pain (principal); N83.201 Unspecified ovarian cyst, right side
CPT/HCPCS: 36415; 76830-TC; 76856-TC; 80053; 81003; 84703; 85025; 85610; 86850; 86900; 86901; 87086; 99285-25; J0131

== ENCOUNTER 2021-02-04 19:55 | Inpatient (IN) | payer OTHER ==
[2021-02-04 20:42] LABS: BASO % 0.3 % (0-2.0); EOS % 1.4 % (0-4.5); HEMATOCRIT 31.5 % (32.4-45.2); HEMOGLOBIN 10.5 GM/dL (10.7-15.3); MCH 29.2 pg (25.7-33.7); MCHC 33.3 g/dl (32.0-36.0); MEAN CELL VOLUME 87.6 fl (80-96); MEAN PLT VOLUME 8.5 fl (7.5-11.1); MONO % 9.1 % (3.8-10.2); NEUT % 70.2 % (42.8-82.8); PLATELET COUNT 210 10^3/uL (134-434); RDW 14.2 % (11.6-15.6); WHITE BLOOD COUNT 7.1 K/mm3 (4.0-10.0)
[2021-02-04 20:52] LABS: INR 0.92 (0.83-1.09); PROTHROMBIN TIME (PATIENT) 11.2 SEC (9.7-13.0)
[2021-02-04] MEDS: ELECTROLYTE-148 SOLN 1,000 ML IV SCH (21:00)
[2021-02-04 21:01] LABS: CALCIUM 8.6 mg/dL (8.5-10.1)
[2021-02-04 21:02] LABS: BLOOD UREA NITROGEN 6.1 mg/dL (7-18)
[2021-02-04 21:05] LABS: CREATININE 0.5 mg/dL (0.55-1.3)
[2021-02-04 21:17] VITALS: BMI 30.1
[2021-02-04] MEDS ORDERED: OXYTOCIN 30 UNITS in 0.9% NS 30 UNIT/500 ML INFUS.BAG IVPB SCH (22:45)
[2021-02-05] MEDS ORDERED: morphine SULFATE/PF 0.5 MG/ML (2cc Syringe - QUVA) ONE (09:05)
[2021-02-05] MEDS: ELECTROLYTE-148 SOLN 1,000 ML IV SCH ×2 (10:48→16:48)
[2021-02-05] MEDS ORDERED: FENTANYL/BUPIVACAINE/NS/PF - PCEA - 50 ML DISP.SYRIN EP ONE ×2 (14:56→20:16)
[2021-02-05] MEDS ORDERED: PCA PUMP NR ONE ×2 (14:56→20:15)
[2021-02-05] MEDS ORDERED: NALOXONE HCL 0.4 MG/ML VIAL IVPUSH PRN (15:49)
[2021-02-05] MEDS ORDERED: FENTANYL/BUPIVACAINE/NS/PF - PCEA - 50 ML DISP.SYRIN EP SCH (16:00)
[2021-02-05] MEDS ORDERED: ePHEDrine SULFATE 50 MG/1 ML AMPULE ONE (17:52)
[2021-02-05] MEDS ORDERED: SODIUM CHLORIDE 0.9% P/F 10 ML VIAL IJ ONE (17:53)
[2021-02-05] MEDS ORDERED: OXYTOCIN 20 UNITS in 0.9% NS 20 UNIT/1,000 ML INFUS.BAG IV ONE (19:13)
[2021-02-05] MEDS ORDERED: ONDANSETRON 4 MG/2 ML VIAL ONE (23:50)
[2021-02-05] MEDS ORDERED: ceFAZolin SODIUM 1 GM VIAL ONE (23:50)
[2021-02-05] MEDS ORDERED: OXYTOCIN 10 UNITS/ML VIAL ONE (23:50)
[2021-02-05] MEDS ORDERED: KETOROLAC TROMETHAMINE 30 MG/1 ML VIAL ONE (23:50)
[2021-02-06] MEDS ORDERED: WITCH HAZEL 50% (TUCKS) 40 PAD/JAR PAD TP PRN (00:48)
[2021-02-06] MEDS ORDERED: BENZOCAINE 20% 57 GM BOTTLE TP PRN (00:48)
[2021-02-06] MEDS ORDERED: IBUPROFEN 800 MG/8 ML IJ IVPB PRN (00:48)
[2021-02-06] MEDS ORDERED: METHYLERGONOVINE MALEATE 0.2 MG/1 ML AMP IM PRN (00:48)
[2021-02-06] MEDS ORDERED: BENZOCAINE 28 GM HEMORRHOIDAL OINTMENT TP PRN (00:48)
[2021-02-06] MEDS ORDERED: SENNOSIDES/DOCUSATE COMBO (SENNA PLUS) TABLET (UD) PO PRN (00:48)
[2021-02-06] MEDS ORDERED: oxyCODONE HCL 5 MG TABLET PO PRN (00:48)
[2021-02-06] MEDS ORDERED: OXYTOCIN 20 UNITS in 0.9% NS 20 UNIT/1,000 ML INFUS.BAG IV SCH (01:00)
[2021-02-06] MEDS ORDERED: morphine SULFATE/PF 0.5 MG/ML (2cc Syringe - QUVA) EP ONE (01:02)
[2021-02-06] MEDS ORDERED: ONDANSETRON 4 MG/2 ML VIAL IVPUSH PRN (01:02)
[2021-02-06] MEDS ORDERED: ACETAMINOPHEN 1000 MG/100 ML VIAL (NON FORMULARY) IVPB ONE (01:07)
[2021-02-06 01:21] LABS: CORD BASE EXCESS -2.7 mmol/L (0-2); CORD HCO3 25.7 mmHg (20-29); CORD PCO2 59.9 mmHg (30-78); CORD pH 7.251 (7.14-7.44)
[2021-02-06 01:24] LABS: CORD BASE EXCESS -4.3 mmol/L (0-2); CORD HCO3 21.9 mmHg (20-29); CORD PCO2 44.4 mmHg (30-78); CORD pH 7.311 (7.14-7.44)
[2021-02-06] MEDS ORDERED: ACETAMINOPHEN INJECTION 100 ML IVPB ONE (01:36)
[2021-02-06] MEDS ORDERED: OXYTOCIN 20 UNITS in 0.9% NS 20 UNIT/1,000 ML INFUS.BAG IV ONE (02:03)
[2021-02-06] MEDS: IBUPROFEN 600 MG TABLET (FP) PO PRN ×2 (13:12→18:09)
[2021-02-06] MEDS: ACETAMINOPHEN 325 MG TABLET (FP) PO PRN ×2 (13:14→18:08)
[2021-02-06] MEDS: SIMETHICONE 80 MG TAB.CHEW (FP) PO PRN ×2 (13:14→18:08)
[2021-02-06] MEDS: PRENATAL VITAMINS W/ FOLIC ACID TABLET (FP) PO SCH (13:19)
[2021-02-07] MEDS ORDERED: BISACODYL 10 MG SUPP.RECT RC PRN (00:48)
[2021-02-07] MEDS: IBUPROFEN 600 MG TABLET (FP) PO PRN ×5 (01:55→23:33)
[2021-02-07] MEDS: SIMETHICONE 80 MG TAB.CHEW (FP) PO PRN ×4 (01:55→19:29)
[2021-02-07] MEDS: ACETAMINOPHEN 325 MG TABLET (FP) PO PRN ×5 (01:55→23:33)
[2021-02-07 09:41] LABS: BASO % 0.3 % (0-2.0); EOS % 1.3 % (0-4.5); HEMATOCRIT 28.6 % (32.4-45.2); HEMOGLOBIN 9.3 GM/dL (10.7-15.3); LYMPH % 10.6 % (8-40); MCH 29.1 pg (25.7-33.7); MCHC 32.6 g/dl (32.0-36.0); MEAN CELL VOLUME 89.2 fl (80-96); MEAN PLT VOLUME 8.7 fl (7.5-11.1); NEUT % 80.8 % (42.8-82.8); PLATELET COUNT 186 10^3/uL (134-434); RDW 14.5 % (11.6-15.6); WHITE BLOOD COUNT 11.8 K/mm3 (4.0-10.0)
[2021-02-07] MEDS: ENOXAPARIN NA (PORCINE) 40 MG/0.4 ML DISP.SYRIN SQ SCH (09:47)
[2021-02-07] MEDS: PRENATAL VITAMINS W/ FOLIC ACID TABLET (FP) PO SCH ×2 (09:47→09:49)
[2021-02-08] MEDS: ENOXAPARIN NA (PORCINE) 40 MG/0.4 ML DISP.SYRIN SQ SCH (10:00)
[2021-02-08] MEDS: PRENATAL VITAMINS W/ FOLIC ACID TABLET (FP) PO SCH (10:00)
[2021-02-08 14:42] VITALS: BP 115/68; PULSE 62; TEMP 97.9
== END 2021-02-08 14:35 | disposition home or self-care (01) | DRG 540 ==
LOC: JLDR 19:55 → J3W 02-06 02:17
PROVIDERS: ADMIT Obstetrics & Gynecology; ATTEND Obstetrics & Gynecology
PROC: 10D00Z1 Extraction of Products of Conception, Low, Open Approach (ICD-10-PCS; principal; 2021-02-05)
DX: O32.4XX0 Maternal care for high head at term, not applicable or unspecified (principal); Z37.0 Single live birth; Z3A.40 40 weeks gestation of pregnancy
CPT/HCPCS: 36415; 36600; 71046-TC-FY; 80048; 82803; 85025; 85610; 85730; 86780; 86850; 86900; 86901; 88307-TC; 93005; 93010; C9803; J0131; U0003; U0005

== ENCOUNTER 2021-03-25 05:35 | Emergency (ER) | payer OTHER ==
[2021-03-25 06:07] VITALS: BP 114/82; PULSE 100; TEMP 101.8; BMI 26.2
[2021-03-25] MEDS ORDERED: ACETAMINOPHEN 500 MG TABLET (FP) PO ONE (07:28)
[2021-03-25] MEDS ORDERED: ACETAMINOPHEN 325 MG TABLET (FP) ONE (07:30)
== END 2021-03-25 11:13 | disposition home or self-care (01) ==
LOC: JER 05:35
DX: J02.9 Acute pharyngitis, unspecified (principal)
CPT/HCPCS: 87880; 99283-25; C9803; U0003; U0005

== ENCOUNTER 2021-07-03 13:14 | Emergency (ER) | payer OTHER ==
[2021-07-03 13:49] VITALS: BP 110/79; PULSE 106; TEMP 99.1; BMI 25.8
[2021-07-03] MEDS ORDERED: ACETAMINOPHEN 500 MG TABLET (FP) PO ONE (15:49)
[2021-07-03] MEDS ORDERED: METOCLOPRAMIDE HCL 10 MG TABLET (FP) PO ONE ×2 (15:49→16:09)
[2021-07-03] MEDS ORDERED: diphenhydrAMINE HCL 25 MG CAPSULE (FP) PO ONE ×2 (15:49→16:09)
[2021-07-03] MEDS ORDERED: ACETAMINOPHEN 500 MG TABLET (FP) ONE (16:10)
== END 2021-07-03 19:54 | disposition left against medical advice (07) ==
LOC: JER 13:14
DX: J06.9 Acute upper respiratory infection, unspecified (principal)
CPT/HCPCS: 87804; 87807; 99283-25; C9803; U0003; U0005

== ENCOUNTER 2023-10-04 12:09 | Emergency (ER) | payer OTHER ==
[2023-10-04 12:15] VITALS: BP 107/55; PULSE 82; RESP 20; TEMP 98.9; BMI 27.8
[2023-10-04 13:02] LABS: EPI CELLS 28 /uL (0-25.1); HYALINE CASTS 0 /uL (0-3.1); URINE APPEARANCE Error; URINE BACTERIA 432 /uL (0-1359); URINE BILIRUBIN NEGATIVE (NEGATIVE); URINE COLOR YELLOW; URINE GLUCOSE (UA) NEGATIVE (NEGATIVE); URINE KETONE NEGATIVE (NEGATIVE); URINE LEUK ESTERASE TRACE (NEGATIVE); URINE NITRITE NEGATIVE (NEGATIVE); URINE PROTEIN NEGATIVE (NEGATIVE); URINE RBC 22 /uL (0-23.9); URINE WBC 12 /uL (0-25.8)
[2023-10-04 13:34] LABS: HEMATOCRIT 40.1 % (32.4-45.2); HEMOGLOBIN 13.5 GM/dL (10.7-15.3); MCH 31.4 pg (25.7-33.7); MCHC 33.5 g/dl (32.0-36.0); MEAN CELL VOLUME 93.6 fl (80-96); MEAN PLT VOLUME 8.8 fl (7.5-11.1); PLATELET COUNT 259 10^3/uL (134-434); RBC 4.29 M/mm3 (3.60-5.2); RDW 13.2 % (11.6-15.6); WHITE BLOOD COUNT 6.3 K/mm3 (4.0-10.0)
[2023-10-04 14:01] LABS: POTASSIUM 4.3 mmol/L (3.5-5.1)
[2023-10-04 14:03] LABS: ALBUMIN 3.9 g/dl (3.4-5.0); BLOOD UREA NITROGEN 13.7 mg/dL (7-18); CALCIUM 9.4 mg/dL (8.5-10.1)
[2023-10-04 14:07] LABS: BILIRUBIN,TOTAL 0.6 mg/dL (0.2-1); CREATININE 0.6 mg/dL (0.55-1.3)
[2023-10-04 14:08] LABS: TOT PROT 7.3 g/dl (6.4-8.2)
[2023-10-04] MEDS ORDERED: RHO(D) IMMUNE GLOBULIN 1,500 UNIT DISP.SYRIN IM ONE (15:45)
== END 2023-10-04 16:10 | disposition left against medical advice (07) ==
LOC: JER 12:09
DX: O26.891 Other specified pregnancy related conditions, first trimester (principal); R10.30 Lower abdominal pain, unspecified; Z3A.00 Weeks of gestation of pregnancy not specified
CPT/HCPCS: 36415; 76817-TC; 80053; 81003; 84702; 84703; 85027; 86850; 86900; 86901; 87491; 87591; 99284-25